=== PATIENT | female | born 1945 | race Caucasian/White ===

== ENCOUNTER 2024-05-14 23:02 | Emergency (ER) | payer MEDICARE ==
[~2024-05-14] VITALS: Ht 170.2 cm; Wt 104.3 kg
[2024-05-15 00:06] LABS: BASOPHILS # (AUTO) 0.1 K/uL (0.0-0.2); BASOPHILS % (AUTO) 0.8 % (0.0-2.0); EOSINOPHILS # (AUTO) 0.1 K/uL (0.0-0.7); EOSINOPHILS % (AUTO) 0.9 % (0.0-6.0); HEMATOCRIT 44 % (33-45); HEMOGLOBIN 14.5 g/dL (11.5-14.8); LYMPHOCYTES # (AUTO) 1.8 K/uL (0.8-4.8); LYMPHOCYTES % (AUTO) 17.2 % (20.0-44.0); MEAN CORPUSCULAR HEMOGLOBIN 28 PG (26.0-33.0); MEAN CORPUSCULAR HGB CONC 33 g/dl (31.0-36.0); MEAN CORPUSCULAR VOLUME 85 fL (82-100); MONOCYTES % (AUTO) 9.3 % (2.0-12.0); NEUTROPHILS # (AUTO) 7.6 K/uL (1.8-8.9); NEUTROPHILS % (AUTO) 71.8 % (43.0-81.0); PLATELET COUNT (AUTO) 236 K/uL (150-450); RED BLOOD CELL COUNT(AUTO) 5.15 MIL/uL (4.0-5.2); RED CELL DISTRIBUTION WIDTH 14.6 % (11.5-15.0); WHITE BLOOD COUNT (AUTO) 10.6 K/uL (4.3-11.0)
[2024-05-15] MEDS ORDERED: LORAZEPAM INJ 2 MG/ML VIAL ONE ×2 (00:13→03:46)
[2024-05-15 00:17] LABS: CARBON DIOXIDE 25 mmol/L (21-32); CHLORIDE 100 mmol/L (98-107); CREATININE 1.1 mg/dL (0.6-1.3); GLUCOSE 99 mg/dL (74-106); POTASSIUM 3.9 mmol/L (3.5-5.1); SODIUM SERUM 137 mmol/L (136-145); UREA NITROGEN, BLOOD 26 mg/dL (7-18)
[2024-05-15 00:30] LABS: NT-PRO BNP 136 pg/mL (0-125)
[2024-05-15] MEDS: LORAZEPAM INJ 2 MG/ML VIAL IV ONE ×2 (00:30→03:54)
[2024-05-15] MEDS: IV NS 0.9% 1,000 ML BAG IV ONE (01:26)
[2024-05-15] MEDS ORDERED: LORA-258 PO (02:58)
[2024-05-15 06:46] VITALS: BP 145/79; TEMP 98.8; O2SAT 98
== END 2024-05-15 06:47 | disposition home or self-care (01) ==
LOC: ER 23:07
DX: F41.0 Panic disorder [episodic paroxysmal anxiety] (principal); R06.02 Shortness of breath; I10 Essential (primary) hypertension; Z88.0 Allergy status to penicillin
CPT/HCPCS: 99285; 71045; 93005; 85025; 80048; 36415 ×2; 84484 ×2; 83880; 96374; 96361; 96376; J2060 ×2